=== PATIENT | male | born 1980 | race Hispanic/Latino ===

== ENCOUNTER 2022-05-20 00:57 | Emergency (ER) | payer SELFPAY ==
[2022-05-20] MEDS ORDERED: Ketorolac Tromethamine 30 MG/ML VIAL ONE (04:15)
== END 2022-05-20 04:00 | disposition home or self-care (01) ==
LOC: ERS 00:57
DX: H66.91 Otitis media, unspecified, right ear (principal)
CPT/HCPCS: 96372; 99282; J1885